=== PATIENT | female | born 1995 | race Caucasian/White ===

== ENCOUNTER → 2023-12-19 | Outpatient (CLI) | payer OTHER ==
[~2023-12-19] VITALS: Ht 175.3 cm; Wt 63.5 kg
[~2023-12-19] MED LIST: PRENATAL MVI PO
[2023-12-19 12:35] VITALS: BP 125/81; PULSE 68; TEMP 98
[2023-12-19 13:25] VITALS: BP 135/85; PULSE 64
== END ==
LOC: COL.RAD 12:00
DX: R22.1 Localized swelling, mass and lump, neck (principal)
CPT/HCPCS: 32108